=== PATIENT | male | born 1985 | race Caucasian/White ===

== ENCOUNTER 2020-02-23 02:00 | Emergency (ER) | payer OTHER ==
[~2020-02-23 02:00] MED LIST: AMOXICILLIN875 MG PO; CLEOCIN HCL300 MG PO; IBU800 MG PO
[2020-02-23] MEDS ORDERED: VISTARIL25 MG PO (02:15)
== END 2020-02-23 03:25 | disposition home or self-care (01) ==
LOC: ER1 02:00
DX: F41.9 Anxiety disorder, unspecified (principal); Z88.1 Allergy status to other antibiotic agents
CPT/HCPCS: 99283; Q0177